=== PATIENT | female | born 1970 | race Caucasian/White ===

== ENCOUNTER 2018-01-02 13:35 | Outpatient (CLI) | payer BC ==
--- NOTE | 2018-01-02 15:57 | CT ---
CT OF THE SINUSES WITHOUT CONTRAST: COMPARISON: None. HISTORY: Chronic sinus problems for years. TECHNIQUE: Multiple contiguous coronal images were obtained in a CT of the sinuses without contrast. Axial and sagittal reformats were performed. FINDINGS: Fluid was seen in the dependent aspect of both maxillary sinuses. The other paranasal sinuses are we ll aerated without mucosal thickening or opacification. No significant increased density of the bone s is seen surrounding any of the sinuses to suggest chronic sinus disease. The bilateral maxillary o steomeatal units are patent. The globes and retrobulbar soft tissues are unremarkable. The visualized intracranial structures are unremarkable. IMPRESSION: Bilateral maxillary sinus fluid without evidence of chronic sinus disease. POS: [facility]
== END 2018-01-02 13:36 | disposition home or self-care (01) ==
LOC: SCSCT 13:35
DX: J32.1 Chronic frontal sinusitis (principal)

== ENCOUNTER 2018-05-23 08:27 | Outpatient (CLI) | payer BC ==
[2018-05-23] MEDS ORDERED: Iopamidol 370 76% 100 ML VIAL ONE (09:00)
--- NOTE | 2018-05-23 10:49 | CT ---
NECK CT SOFT TISSUES WITH CONTRAST: Date: 05/23/18 CLINICAL HISTORY: Right neck pain, intermittent. History of remote cyst removal from the neck. FINDINGS: The parotid glands are partially fatty replaced bilaterally, symmetric appearing. Submandibular gland s are unremarkable. No discrete thyroid lesion. No intrinsic mass at the level of the glottis. There is effacement of the left piriform sinus by soft tissue density, nonspecific. Epiglottis and preepigl ottic space are maintained. Subglottic tracheal air column is patent. No pathologic enlargement of re gional lymph nodes. No significant pathology of the subcutaneous tissues of the neck. Incidental note of mild opacification of paranasal sinuses. IMPRESSION: 1. Nonspecific soft tissue effacement of the left piriform sinus. Recommend correlation with direct visualization in order to exclude an underlying, occult lesion. 2. Symmetric appearing partial fatty replacement of each parotid gland. 3. Additional findings are detailed above. POS: [facility]
== END 2018-05-23 08:28 | disposition home or self-care (01) ==
LOC: SCSCT 08:27
PROVIDERS: ATTEND Otolaryngology Plastic Surgery within the Head & Neck
DX: M54.2 Cervicalgia (principal); R22.1 Localized swelling, mass and lump, neck; K21.9 Gastro-esophageal reflux disease without esophagitis
CPT/HCPCS: 70491

== ENCOUNTER 2022-02-07 08:09 | Outpatient (CLI) | payer BC | END 2022-02-07 08:10 | disposition home or self-care (01) | LOC: BICMAMMO 08:09 | PROVIDERS: ATTEND Obstetrics & Gynecology | DX: R92.2 Inconclusive mammogram (principal) | CPT/HCPCS: G0279 ==